=== PATIENT | female | born 1940 | race Caucasian/White ===

== ENCOUNTER 2017-03-31 15:00 | Emergency (ER) | payer OTHER, MEDICARE ==
[~2017-03-31] VITALS: Ht 152.4 cm; Wt 53.5 kg
--- NOTE | ~2017-03-31 | EKG ---
[address] [place] [address] ELECTROCARDIOGRAM REPORT Name: SYED ZEE [facility] Room [id number] Admission: 03/31/17 Attend Phys: Discharge: 03/31/17 Date of : 42 Report #: [id number] THIS REPORT FOR: //name// [facility] ED Test Date: 2017-03-31 Test Time: 15:11:03 Pat Name: SYED ZEE Department: Room: Gender: F Air [employer]: BRIT : 1940 Requested By: Akil Kelley Order Number: [id number] MD: Bubba Morales Measurements Intervals Barker Rate: 73 P: 74 OR: 127 QRS: 58 QRSD: 74 T: 17 QT: 365 QTc: 403 Interpretive Statements Sinus rhythm No significant abnormality Compared to ECG 12/31/2014 13:35:07 No significant changes Electronically Signed On 04-01-2017 17:01:40 CDT by Bubba Morales [email or web address] <ELECTRONICALLY SIGNED> By: Bubba Morales MD, [facility] 04/01/17 1701 1511 10 Bubba Morales MD, FACC /EPI
[~2017-03-31 15:00] MED LIST: CALCIUM 600 +1 EAC1 PO; D3-5050000 UNIT; GARLIQUE5000 MCG PO; L-LYSINE1000 M1 PO; NEPHROCAPS SOFT1 CAP PO; NEXIUM40 MG PO; OMEGA 3 1,0001 EACH PO; PROBIOTIC1 EAC2 PO; VITAMINC500 PO
[2017-03-31 16:10] LABS: BASOPHILS 0.9 % (0.0-2.0); EOSINOPHILS 2.2 % (0.0-3.0); HEMOGLOBIN 12.7 gm/dL (12.0-15.0); MCH 31.2 pg (26.0-34.0); MCHC 33.4 g/dL (28.0-37.0); MCV 93.5 fL (80.0-100.0); MONOCYTES 11.4 % (1.0-8.0); PLATELET COUNT 232 thou/uL (150-400); POLYS 55.5 % (36.0-66.0); RBC 4.07 mil/uL (4.20-5.00); RDW 12.9 % (10.5-14.5); WBC 3.6 thou/uL (4.0-11.0)
[2017-03-31 16:15] LABS: ANION GAP 5 mmol/L (7-16); BUN 11 mg/dL (7-18); CALCIUM 9.4 mg/dL (8.5-10.1); CHLORIDE 107 mmol/L (98-107); CO2 30 mmol/L (21-32); CREATININE 0.8 mg/dL (0.6-1.0); GLUCOSE 93 mg/dL (74-106); SODIUM 142 mmol/L (136-145)
[2017-03-31 16:25] LABS: MANUAL DIFF NO
[2017-03-31 16:29] LABS: NT-PRO BRAIN NAT PEPTIDE 63 pg/mL (<300); TROPONIN-I < 0.04 ng/mL (<0.04-0.07)
[2017-03-31] MEDS ORDERED: ZPAK PO (16:52)
[2017-03-31 17:05] VITALS: BP 132/82
== END 2017-03-31 16:53 | disposition home or self-care (01) ==
LOC: ER 15:00
PROVIDERS: Nurse Practitioner
DX: J18.9 Pneumonia, unspecified organism (principal); E11.9 Type 2 diabetes mellitus without complications; Z88.0 Allergy status to penicillin; Z88.6 Allergy status to analgesic agent